=== PATIENT | male | born 2000 | race Caucasian/White ===

== ENCOUNTER → 2021-03-16 09:16 | Outpatient (BNVA) | payer OTHER, MEDICAID, SELFPAY | PROVIDERS: PCP Pediatrics; Visit Provider Nurse Practitioner Family ==

== ENCOUNTER → 2022-03-15 09:14 | Outpatient (BNVA) | payer OTHER, MEDICAID, SELFPAY | PROVIDERS: PCP Internal Medicine; Visit Provider Nurse Practitioner Family | DX: Z13.89 Encounter for screening for other disorder (principal) ==

== ENCOUNTER → 2022-09-13 15:20 | Outpatient (BNVA) | payer OTHER, MEDICAID, SELFPAY | PROVIDERS: PCP Internal Medicine; Visit Provider Nurse Practitioner Family ==

== ENCOUNTER 2022-09-13 15:49 | Outpatient (AMB) | payer OTHER, MEDICAID, SELFPAY ==
--- NOTE | 2022-09-13 15:21 | MHC.OFFVIS ---
Intake Intake Visit Reasons: 6 months follow up Intake Note: pt presents with mom as a telehealth appt. He's pretty much doing well with the medication. Chamber Worker Required: No Accompanied by: Mother Allergies amoxicillin Allergy (Mild, Verified 09/13/22 15:23) rash azithromycin [From Zithromax] Allergy (Mild, Verified 09/13/22 15:23) rash Medication List - Last Reconciled 09/13/22 by CHONG Fu clonazepam 2 mg PO DAILY PRN clonazepam 1 tab as needed for seizures lasting more than 2min; MDD 1 tab COVID-19 vacc,mRNA([employer])(PF) ([employer] COVID-19 Vaccine (PF)) 0.3 mL IM Q3W fluoride (sodium) 1.1% appl PO fluoxetine 20 mg (5 mL) PO DAILY gabapentin orally; 7.5ml bid multivitamin 1 tab PO DAILY HPI HPI Comments History of Present Illness Details 22-yr-old male presents for f/u visit. Pt's mother provides history. Denies any significant interval medical changes. Pt continues to do well at his new program. Now helps to deliver meals and take orders for snacks- using his communication device. He rarely has a bad day. He is still triggered by hearing the Happy Birthday song- but both parents and his program are proactive to avoid exposure to this. No interval seizures. [facility] Surgical History No pertinent past surgical history Family History Father HTN (hypertension) High cholesterol Mother Age related osteoporosis Acid reflux Anemia Social History (Updated 09/13/22 @ 15:25 by Nia Patel CMA) Alcohol intake: never Patient Tobacco Use Status: Never used Tobacco Use of substances other than those prescribed or required for medical reasons: No Review of Systems Const All systems reviewed & are unremarkable except as noted in HPI and below Assessment & Plan Assessment & Plan (1) Epilepsy: Code(s): G40.909 - Epilepsy, unspecified, not intractable, without status epilepticus (2) Autistic disorder: Code(s): F84.0 - Autistic disorder Plan Pt continues to be doing better at his new day program. Continue Gabapentin 375mg BID (oral rachelle) Continue Fluoxetine 20mg qd (oral rachelle). Clonazepam 2mg tab prn seizure > 2 min. Monitor seizures. Monitor mood. Pt does not tolerate blood draws. f/u in 6 months or sooner- may do televideo f/u. Telehealth Telehealth Location of provider rendering services: practice address Location of patient: address on file Patient Identification confirmed using: Name, : Yes Telehealth method: voice only Patient verbally consented to treatment: Yes Patient verbally consented to billing insurance company: Yes Patient informed of any privacy concerns related to visit: Yes Minutes spent on Phone/Video with Pt.: 8 Coding Level of Care Code Tele Est Pt Level 4 (17112) Diagnoses Epilepsy G40.909 Autistic disorder F84.0 Time Spent (min) 8
== END 2022-09-13 22:25 | disposition home or self-care (01) ==
PROVIDERS: PCP Internal Medicine; Visit Provider Nurse Practitioner Family
DX: G40.909 Epilepsy, unspecified, not intractable, without status epilepticus (principal); F84.0 Autistic disorder
CPT/HCPCS: 99214

== ENCOUNTER 2023-10-24 14:55 | Outpatient (AMB) | payer OTHER, MEDICAID, SELFPAY ==
--- NOTE | 2023-10-24 15:17 | A.OFFVIS_ITS ---
Vital Signs 10/24/23 15:19 Height 5 ft 8 in Weight 130 lb BMI 19.8 Pulse 100 Pulse Source Pulse Oximeter Pulse Oximetry (%) 97 Oxygen Delivery Method Room Air Intake Visit Reasons: Follow-Unable to lvm Intake Note: Patient presents for follow up. Allergies amoxicillin Allergy (Mild, Verified 10/24/23 15:20) rash azithromycin [From Zithromax] Allergy (Mild, Verified 10/24/23 15:20) rash Medication List - Last Reconciled 10/24/23 by CHONG Fu clonazepam 1 tab as needed for seizures lasting more than 2 min; MDD 1 tab COVID-19 vacc,mRNA(Pfizer)(PF) ([employer] COVID-19 Vaccine (PF)) 0.3 mL IM Q3W fluoride (sodium) 1.1% appl PO fluoxetine 20 mg PO DAILY 30 days gabapentin 500 mg (10 mL) PO BID 30 days multivitamin 1 tab PO DAILY HPI Comments Details: 23-yr-old male presents for f/u visit. Pt denies any significant interval medical changes. Pt did have a breakthrough seizure a few months ago, parents think it is d/t pt repeatedly exposing himself to TV/lights. Thus, we increased Gabapentin- which pt is tolerating well. His mood is stable. He is doing well at his day program. He still is focused on meals. He communicates simple needs w/ an adaptive device. [facility] Surgical History No pertinent past surgical history Family History Father HTN (hypertension) High cholesterol Mother Age related osteoporosis Acid reflux Anemia Social History Alcohol intake: never Patient Tobacco Use Status: Never used Tobacco Review of Systems Const All systems reviewed & are unremarkable except as noted in HPI and below Physical Exam Vital Signs: Last Vital Signs Pulse 100 10/24/23 15:19 Pulse Ox 97 10/24/23 15:19 Oxygen Delivery Method Room Air 10/24/23 15:19 BMI result Body Mass Index 19.8 Const General: cooperative and no acute distress Resp Effort & Inspection: normal respiratory effort and able to speak in complete sentences Neuro Other: Alert, oriented to person and place. Developmental delay. Uses communication device to answer/ask simple questions. Steady gait. MS 5/5. Motor exam (neuro): 5/5 motor strength present throughout Psych Attitude: cooperative Assessment & Plan Assessment & Plan (1) Epilepsy: Code(s): G40.909 - Epilepsy, unspecified, not intractable, without status epilepticus Category: Medical (2) Autistic disorder: Code(s): F84.0 - Autistic disorder Category: Medical Plan Continue Gabapentin 500mg BID (10ml oral rachelle) Continue Fluoxetine 20mg qd (oral rachelle). Clonazepam 2mg tab prn seizure > 2 min. Monitor seizures. Monitor mood. Pt does not tolerate blood draws. f/u in 12 months or sooner prn. Medications: Changed From clonazepam 1 tab as needed for seizures lasting more than 2min; 30 tabs 0RF seizures MDD 1 tab G40.909 - Epilepsy, unspecified, not intractable, without status epilepticus To clonazepam 1 tab as needed for seizures lasting more than 2 min; 15 tabs 1RF seizures MDD 1 tab G40.909 - Epilepsy, unspecified, not intractable, without status epilepticus Refilled gabapentin 500 mg (10ml) bid; orally 500 mg (10 mL) PO BID 30 days 660 mL 6RF Discontinued clonazepam Discontinued Reason: Ancillary Entered New Order 2 mg PO DAILY PRN 20 tabs 0RF seizures Coding Level of Care Code Est Pt Level 4 (46535) Diagnoses Epilepsy G40.909 Autistic disorder F84.0
[2023-10-24 15:19] VITALS: PULSE 100; O2SAT 97; BMI 19.8
== END 2023-10-24 16:12 | disposition home or self-care (01) ==
PROVIDERS: PCP Internal Medicine; Visit Provider Nurse Practitioner Family
DX: G40.909 Epilepsy, unspecified, not intractable, without status epilepticus (principal); F84.0 Autistic disorder
CPT/HCPCS: 99214

== ENCOUNTER → 2023-10-24 14:55 | Outpatient (BNVA) | payer OTHER, MEDICAID, SELFPAY | PROVIDERS: PCP Internal Medicine; Visit Provider Nurse Practitioner Family ==

== ENCOUNTER 2024-10-24 09:17 | Outpatient (AMB) | payer OTHER, MEDICAID, SELFPAY ==
--- NOTE | 2024-10-24 09:30 | A.OFFVIS_ITS ---
Vital Signs 10/24/24 09:34 Height 5 ft 9 in Weight 133 lb 2 oz BMI 19.7 BP 114/76 Blood Pressure Location Lt brachial Position Sitting Pulse 65 Pulse Source Pulse Oximeter Pulse Oximetry (%) 98 Oxygen Delivery Method Room Air Intake Visit Reasons: Follow Up 1yr Intake Note: Patient presents 1 year follow up for Epilepsy Coding Auditor Required: Yes Coding Auditor Name: Parents spoke on behalf Accompanied by: Parent Allergies amoxicillin Allergy (Mild, Verified 10/24/24 09:31) rash azithromycin (From Zithromax) Allergy (Mild, Verified 10/24/24 09:31) rash Medication List - Last Reconciled 10/24/24 by CHONG Fu clonazepam 1 tab as needed for seizures lasting more than 2 min; MDD 1 tab COVID-19 vacc,mRNA(Pfizer)(PF) ([email or web address] COVID-19 Vaccine (PF)) 0.3 mL IM Q3W fluoride (sodium) 1.1% appl PO fluoxetine 20 mg PO DAILY 30 days gabapentin 500 mg (10 mL) PO BID 30 days multivitamin 1 tab PO DAILY HPI Comments Details: 24-yr-old male presents for f/u visit for seizure, in setting of developmental delay. Patient is accompanied by his mother and father. Pt denies any significant interval medical changes. Denies any interval seizure activity. * Compliant w/ Gabapentin- tolerating well. His mood is stable. He is doing well at his day program. He still is focused on meals- for this does not seem to be causing any behavioral disruptions. He communicates simple needs, requests via adaptive communication device. He also uses a tablet, and enjoys using this to play games and find new things of interest, such as new wavers of his preferred snacks. [facility] Surgical History No pertinent past surgical history Family History Father HTN (hypertension) High cholesterol Mother Age related osteoporosis Acid reflux Anemia Social History Alcohol intake: never Patient Tobacco Use Status: Never used Tobacco Physical Exam Vital Signs: Last Vital Signs Pulse 65 10/24/24 09:34 BP 114/76 10/24/24 09:34 Pulse Ox 98 10/24/24 09:34 Oxygen Delivery Method Room Air 10/24/24 09:34 BMI result Body Mass Index 19.7 Const General: cooperative and no acute distress Resp Effort & Inspection: normal respiratory effort and able to speak in complete sentences Neuro Other: Alert, oriented to person and place. Developmental delay. Uses communication device to answer/ask simple questions. Steady gait. MS 5/5. Motor exam (neuro): 5/5 motor strength present throughout Psych Attitude: cooperative Assessment & Plan Assessment & Plan (1) Epilepsy: Code(s): G40.909 - Epilepsy, unspecified, not intractable, without status epilepticus Category: Medical Qualifiers: Epilepsy type: unspecified Intractability: not intractable Status epil epticus: without status epilepticus Qualified Code(s): G40.909 - Epilepsy, unspecified, not intractable, without status epilepticus (2) Autistic disorder: Code(s): F84.0 - Autistic disorder Category: Medical Plan Continue Gabapentin 500mg BID (10ml oral rachelle) Continue Fluoxetine 20mg daily (maybe opened and administered in soft food of choice) Continue Clonazepam 2mg tab prn seizure > 2 min. Monitor seizures. Monitor mood. Pt does not tolerate blood draws. When needed, we can complete patient seizure action plan for his day program. f/u in 12 months or sooner prn. Coding Level of Care Code Est Pt Level 4 (69947) Diagnoses Nonintractable epilepsy without status epilepticus, unspecified epilepsy type G40.909 Epilepsy type: unspecified Intractability: not intractable Status epilepticus: without status epilepticus Autistic disorder F84.0
[2024-10-24 09:34] VITALS: BP 114/76; PULSE 65; O2SAT 98; BMI 19.7
--- OUTSIDE RECORDS SUMMARY | 2024-10-24 09:49 | XMS_ITS | Encounter Summary ---
Author Organization [facility] Address [address] [place] [address] Phone Care Team Providers Care Automotive Design Drafter Name Role Phone Alba Gr MD Primary Care Provider [phone] Encounter Details Date Type Department Care Team (Late st Contact Info) Description 11/05/2010 Conversion Encounter [facility] [place] [address] [place] [id number] Social History Tobacco Use Types Packs/Day Years Used Date Smoking Tobacco: Never Assessed Sex and Gender Information Value Date Recorded Sex Assigned at Not on file Legal Sex Male 6:15 PM EDT Gender Identity Not on file Sexual Orientation Not on file documented as of this encounter Plan of Treatment Not on file documented as of this encounter Visit Diagnoses Not on filedocumented in this encounter Care Teams Automotive Design Drafter Relationship Specialty Start Date End Date Alba Gr MD [address] [place] [address] PCP - General 07/06/17 04/29/22 documented as of this encounter
--- OUTSIDE RECORDS SUMMARY | 2024-10-24 09:49 | XMS_ITS | Clinical Summary ---
Author Organization [facility] Address [address] [place] [phone] Phone Care Team Providers Care Sales Account Coordinator Name Role Phone Unavailable Primary Care Provider Unavailabl e Allergies Active Allergy Reactions Criticality Noted Date Comments Amoxicillin Azithromycin Medications CLONAZEPAM PO Take 33 mcg by mouth. 10/26/2016 Active Multiple Vitamin (MULTIVITAMINS PO) Multivitami ns; 0; 11/05/2010; Active 11/05/2010 Active gabapentin 250 MG/5ML solution 02/14/2020 Act yue FLUoxetine 20 MG/5ML solution 04/28/2021 Act yue Sodium Fluoride 5000 Plus 1.1 % cream 04/28/2021 Active triamcinolone 0.1 % cream 06/14/2020 Active Active Problems Problem Noted Date Diagnosed Date Irritable 06/13/2020 Overview (06/13/2020): [facility]- started on Fluoxetine. Continued on Gabapentin Developmental delay, severe 03/30/2018 Epilepsy 02/05/2016 Overview (03/30/2018): Epilepsy (345.90) Onset: 02/05/2016 Added by: Alba Gr 1st sz 2013, diagnosed with probable focal Epilepsy . 2nd sz 2015. Followed by Neuro Assessment & Plan (05/01/2021 5:22 PM EST): Followed by Neuro. Stable on current meds Assessment & Plan (03/08/2019 7:18 PM EST): Followed by Neuro. Stable on current meds Convulsions 11/29/2013 Overview (03/02/2018): Seizure(s); other (780.39) Onset: 11/29/2013 Added by: Jennifer Orlando Active autistic disorder 09/18/2013 Overview (03/30/2018): Autistic disorder, current or active state (299.00) Onset: 09/18/2013 Added by: Divya Armendariz Larry Receives therapies (OT/ST/PT) and uses assistive speaking device Immunizations Immunization Administration Dates Next Due DTaP 5 04/15/2005, 2,2000,09/02,2000 H1N1 04/02/2009,01/14/2009 Hep A, ped/adol 01/31/2015,09/13/2013 Hep B, ped/adol 03/03/2018, 1,01/09/2001,06/30 Hib (PRP-T) 07/26/2001, 1,2000,07/14 IPV 04/23/2004, 2,2000,07/14 Influenza, injectable, quadr ivalent, preservative free 12/30/2021,12/20/2020,11/03/2019,02/03,03/03/2018,02/18/2017,02/05/2016 ,01/31/2015,12/31/2013 Influenza, injectable, triva lent, preservative free 11/25/2010,11/06/2009,04/02/2009,03/05 MMR 04/15/2005,07/26/2001 Meningococcal B Trumenba 09/06/2019,03/08/2019 Meningococcal Conj (Menactra) MCV4P 02/18/2017,0 08/28/2012 PPD Test 11/03/2021,06/22/2007 Pneumococcal Conjugate 04/26/2001,2000,2000,07/14 Tdap 08/28/2012 Varicella 06/25/2009,11/01/2001 Social History Tobacco Use Types Packs/Day Years Used Date Smoking Tobacco: Never Assessed Hunger/Food Answer Date Recorded In the last 12 months, did y ou or your family ever eat less than you felt you should because there wasn't enough money for food? No 05/01/2021 Stable Housing Answer Date Recorded Are you worried that in the next 2 months you may not have stable housing? No 05/01/2021 Transportation Concerns Answer Date Rec orded In the last 12 months, have you or your family ever had to go without healthcare because you didn't have a way to get there? No 05/01/2021 Hazards in Home Answer Date Recorded Think about the place you li ve. Do you have problems with any of the following? Pests (mice or roaches), mold, no/not working smoke detectors, water leaks, no window guards. No 2021 Financing Utilities Answer Date Recorde d In the last 12 months, has t he electric, gas, oil, or water company threatened to shut off your services in your home? No 05/01/2021 Safety at Home Answer Date Recorded Are you or your family worried about feeling saf e in your home? No 05/01/2021 Outside Support Answer Date Recorded Do you feel that you need mo re support from other people or programs to help you care for yourself or your family? No 05/01/2021 Understanding Health Concerns Answer Da te Recorded Do you need help understandi ng your or your child's healthcare needs (diagnosis, medications, plan, etc.)? No 05/01/2021 Financing Health Concerns Answer Date R ecorded In the last 12 months, was t here a time when your child needed to see a doctor or get medications or supplies but could not because of cost? No 05/01/2021 Missing School or Work Answer Date Nitin rded Did you or your child miss s chool or work because of a health problem that could have been avoided? No 05/01/2021 Sex and Gender Information Value Date Recorded Sex Assigned at Not on file Legal Sex Male 6:15 PM EDT Gender Identity Not on file Sexual Orientation Not on file Last Filed Vital Signs Vital Sign Reading Time Taken Comments Blood Pressure 112/64 05/01/2021 3:04 PM EST Pulse 78 05/01/2021 3:04 PM EST Temperature 37.1 C (98.7 F) 11/03/2021 4:14 PM EDT Respiratory Rate 19 03/30/2021 5:03 PM EST Oxygen Saturation 99% 05/01/2021 3:04 PM EST Inhaled Oxygen Concentration - - Weight 67.4 kg (148 lb 9.4 oz) 05/01/2021 3:04 P M EST Height 173.3 cm (5' 8.23 ) 05/01/2021 3:04 PM ES T Body Mass Index 22.44 05/01/2021 3:04 PM EST Plan of Treatment Health Maintenance Due Date Last Done Comments HPV Vaccines (1 - Male 3-dos e series) 2015 DTaP,Tdap,and Td Vaccines (7 - Td or Tdap) 08/28/2022 08/28/2012, 04/15/2005, 11/01/2001, Additional history exists COVID-19 Vaccine (2023-2 5 season) 2023 02/17/2021, 08/06/2020, 07/16/2020 Influenza Vaccines (#1) 2024 12/31/19, 12/20/2020, 11/03/2019, Additional history exists Pneumococcal Vaccine Completed 04/26/2001, 2000, 2000, Additional history exists HIB Vaccines Completed 07/26/2001, 06/2000, 2000, Additional history exists IPV Vaccines Completed 04/23/2004, 04/01, 2000, Additional history exists MMR Vaccines Completed 04/15/2005, 07/26/2001 Varicella Vaccines Completed 06/25/2009, 11/01/2001 Hepatitis A Vaccines Completed 01/31/2015, 09/14/19 14 Meningococcal Vaccine Completed 02/18/2017, 013 Hepatitis B Vaccines Completed 03/03/2018, 01/18/2001, 01/09/2001, Additional history exists Men B Vaccine Completed 09/06/2019, 03/08/2019 Insurance [facility] NON PCC
== END 2024-10-24 10:31 | disposition home or self-care (01) ==
LOC: HO.HSMS 09:17
PROVIDERS: PCP Internal Medicine; Visit Provider Nurse Practitioner Family
DX: G40.909 Epilepsy, unspecified, not intractable, without status epilepticus (principal); F84.0 Autistic disorder
CPT/HCPCS: 99214